=== PATIENT | female | born 1950 | race Caucasian/White ===

== ENCOUNTER 2022-10-25 13:21 | Emergency (ER) | payer OTHER, MEDICAID ==
[~2022-10-25] VITALS: Ht 157.5 cm; Wt 106.0 kg
[2022-10-25 14:35] VITALS: BP 136/50
[2022-10-25] MEDS ORDERED: ACETAMINOPHEN 500 MG TAB PO ONE (15:00)
[2022-10-25] MEDS ORDERED: ACET-1080 PO (15:17)
[2022-10-27] MEDS ORDERED: GABA300C10 PO (15:02)
[2022-10-27] MEDS ORDERED: EMPA1TAB PO (15:02)
[2022-10-27] MEDS ORDERED: LISI-716 PO (15:02)
[2022-10-27] MEDS ORDERED: NIFE1TAB31 PO (16:55)
[2022-10-27] MEDS ORDERED: NIFE1POW (16:58)
[2022-10-27] MEDS ORDERED: NIFE1TAB31 (16:58)
== END 2022-10-25 15:19 | disposition home or self-care (01) ==
LOC: ER 13:21
DX: S83.91XA Sprain of unspecified site of right knee, initial encounter (principal); S70.11XA Contusion of right thigh, initial encounter; E11.9 Type 2 diabetes mellitus without complications; I10 Essential (primary) hypertension; W18.09XA Striking against other object with subsequent fall, initial encounter; Y93.89 Activity, other specified; Y92.89 Other specified places as the place of occurrence of the external cause; Y99.8 Other external cause status
CPT/HCPCS: 73562